=== PATIENT | female | born 1965 | race Caucasian/White ===

== ENCOUNTER → 2019-09-17 | Outpatient (CLI) | payer OTHER | LOC: ULTRA 14:21 | PROVIDERS: ATTEND Obstetrics & Gynecology | DX: R10.2 Pelvic and perineal pain (principal); Z85.43 Personal history of malignant neoplasm of ovary ==

== ENCOUNTER → 2019-09-24 | Outpatient (CLI) | payer OTHER | LOC: LAB 11:43 | PROVIDERS: ATTEND Nurse Practitioner | DX: R05 Cough (principal); R07.89 Other chest pain; Z20.828 Contact with and (suspected) exposure to other viral communicable diseases ==

== ENCOUNTER → 2019-12-27 | Outpatient (CLI) | payer OTHER | LOC: LAB 16:15 | PROVIDERS: ATTEND Hospitalist | DX: Z20.828 Contact with and (suspected) exposure to other viral communicable diseases (principal) ==

== ENCOUNTER → 2019-12-31 | Outpatient (CLI) | payer OTHER ==
[2019-12-31 14:51] LABS: ABSOLUTE NEUTROPHILS 4.8 thou/uL (1.4-8.2); BASOPHILS 0.6 % (0.0-2.0); EOSINOPHILS 2.1 % (0.0-3.0); HEMATOCRIT 41.5 % (37.0-47.0); HEMOGLOBIN 14.1 gm/dL (12.0-15.0); LYMPHOCYTES 27.9 % (24.0-44.0); MCH 30.5 pg (26.0-34.0); MCV 89.6 fL (80.0-100.0); MONOCYTES 5.7 % (1.0-8.0); PLATELET COUNT 274 thou/uL (150-400); POLYS 63.7 % (36.0-66.0); RBC 4.63 mil/uL (4.20-5.00); RDW 12.9 % (10.5-14.5); WBC 7.5 thou/uL (4.0-11.0)
[2019-12-31 15:07] LABS: ALBUMIN 3.7 g/dL (3.4-5.0); CALCIUM 9.1 mg/dL (8.5-10.1); CREATININE 0.7 mg/dL (0.6-1.0); POTASSIUM 3.9 mmol/L (3.5-5.1); TOTAL BILIRUBIN 0.6 mg/dL (0.2-1.0)
== END ==
LOC: LAB 14:16
PROVIDERS: ATTEND Nurse Practitioner Family
DX: M19.031 Primary osteoarthritis, right wrist (principal); M25.731 Osteophyte, right wrist; M25.521 Pain in right elbow; G56.22 Lesion of ulnar nerve, left upper limb; R20.0 Anesthesia of skin; Z68.41 Body mass index [BMI] 40.0-44.9, adult

== ENCOUNTER → 2020-01-02 | Outpatient (CLI) | payer OTHER | LOC: LAB 15:12 | PROVIDERS: ATTEND Family Medicine | DX: Z20.828 Contact with and (suspected) exposure to other viral communicable diseases (principal) ==

== ENCOUNTER → 2020-02-25 | Outpatient (CLI) | payer OTHER | LOC: LAB 10:23 | PROVIDERS: ATTEND Specialist | DX: Z20.828 Contact with and (suspected) exposure to other viral communicable diseases (principal) ==

== ENCOUNTER → 2020-03-11 | Outpatient (CLI) | payer OTHER | LOC: LAB 14:33 | PROVIDERS: ATTEND Specialist | DX: Z20.828 Contact with and (suspected) exposure to other viral communicable diseases (principal) ==

== ENCOUNTER → 2020-03-17 | Outpatient (CLI) | payer OTHER | LOC: LAB 12:50 | PROVIDERS: ATTEND Specialist | DX: Z20.828 Contact with and (suspected) exposure to other viral communicable diseases (principal) ==

== ENCOUNTER → 2020-03-24 | Outpatient (CLI) | payer OTHER | LOC: LAB 14:21 | PROVIDERS: ATTEND Specialist | DX: U07.1 COVID-19 (principal) ==

== ENCOUNTER 2020-03-30 12:30 | Emergency (ER) | payer OTHER ==
[~2020-03-30] VITALS: Ht 157.5 cm; Wt 100.7 kg
[2020-03-30] MEDS ORDERED: IBUPROFEN 800800 M1 PO (13:32)
[2020-03-30] MEDS ORDERED: METFORMIN HCL500 M3 PO (13:32)
[2020-03-30 13:43] LABS: ABSOLUTE NEUTROPHILS 2.7 thou/uL (1.4-8.2); BASOPHILS 0.3 % (0.0-2.0); EOSINOPHILS 0.8 % (0.0-3.0); HEMATOCRIT 41.9 % (37.0-47.0); HEMOGLOBIN 13.8 gm/dL (12.0-15.0); LYMPHOCYTES 34.7 % (24.0-44.0); MCH 29.7 pg (26.0-34.0); MONOCYTES 5.4 % (1.0-8.0); PLATELET COUNT 198 thou/uL (150-400); POLYS 58.8 % (36.0-66.0); RBC 4.66 mil/uL (4.20-5.00); WBC 4.6 thou/uL (4.0-11.0)
[2020-03-30 13:51] LABS: CALCIUM 8.8 mg/dL (8.5-10.1); CREATININE 0.8 mg/dL (0.6-1.0)
[2020-03-30 13:58] LABS: ALBUMIN 3.1 g/dL (3.4-5.0); TOTAL BILIRUBIN 0.4 mg/dL (0.2-1.0); TOTAL PROTEIN 6.7 g/dL (6.4-8.2)
[2020-03-30] MEDS ORDERED: ZPAK PO (14:00)
[2020-03-30] MEDS ORDERED: PREDNISONE 20 M20 M1 PO (14:00)
--- NOTE | 2020-03-30 14:28 | EKG ---
[place] [address] [address] [facility] [place] [address] ELECTROCARDIOGRAM REPORT Name: MAGGI ALVAREZ Room #: REG [facility]#: [id number] Admission: 03/30/20 Attend Phys: Discharge: Date of : 69 Report #: [id number] [facility] ED Test Date: 2020-03-30 Test Time: 13:18:47 Pat Name: MAGGI ALVAREZ Department: Room: Gender: F Budget Officer: irvin : 1965 Requested By: Drake Hood Order Number: [id number] MD: Curtis Pennington Measurements Intervals [place] Rate: 82 P: 44 SC: 126 QRS: 24 QRSD: 69 T: 36 QT: 346 QTc: 404 Interpretive Statements Sinus rhythm Abnormal R-wave progression, early transition No previous ECG available for comparison Electronically Signed On 03-30-2020 14:28:42 [employer] by Curtis Pennington [email or web address] <ELECTRONICALLY SIGNED> By: Curtis Pennington MD, [facility] 03/30/20 1428 1318 1318 Curtis Pennington MD, FACC /EPI
[2020-03-30 14:41] VITALS: BP 140/77
== END 2020-03-30 14:41 | disposition home or self-care (01) ==
LOC: ER 12:30
PROVIDERS: Emergency Medicine
DX: U07.1 COVID-19 (principal); E11.9 Type 2 diabetes mellitus without complications; I10 Essential (primary) hypertension; Z79.899 Other long term (current) drug therapy

== ENCOUNTER → 2020-05-21 | Outpatient (CLI) | payer OTHER ==
[~2020-05-21] MED LIST: IBUPROFEN 800800 M1 PO; METFORMIN HCL500 M3 PO; PREDNISONE 20 M20 M1 PO; ZPAK PO
[2020-05-21 09:03] LABS: ABSOLUTE NEUTROPHILS 4.2 thou/uL (1.4-8.2); BASOPHILS 0.7 % (0.0-2.0); EOSINOPHILS 3.3 % (0.0-3.0); HEMOGLOBIN 13.6 gm/dL (12.0-15.0); LYMPHOCYTES 29.4 % (24.0-44.0); MCHC 33.1 g/dL (28.0-37.0); MCV 90.7 fL (80.0-100.0); MONOCYTES 5.9 % (1.0-8.0); PLATELET COUNT 256 thou/uL (150-400); POLYS 60.7 % (36.0-66.0); RBC 4.52 mil/uL (4.20-5.00); RDW 13.4 % (10.5-14.5); WBC 6.9 thou/uL (4.0-11.0)
[2020-05-21 09:29] LABS: ALBUMIN 3.6 g/dL (3.4-5.0); ANION GAP 6 mmol/L (7-16); BUN 18 mg/dL (7-18); CALCIUM 9.2 mg/dL (8.5-10.1); CHLORIDE 103 mmol/L (98-107); CHOLESTEROL 166 mg/dL (<200); CO2 28 mmol/L (21-32); CREATININE 0.9 mg/dL (0.6-1.0); GLUCOSE 181 mg/dL (74-106); HDL CHOLESTEROL 62 mg/dL (>40); LDL CHOLESTEROL 86 mg/dL (<100); POTASSIUM 4.2 mmol/L (3.5-5.1); SGOT 27 U/L (15-37); SGPT 44 U/L (30-65); SODIUM 137 mmol/L (136-145); TC:HDL 2.7 Ratio (Not establshd); TOTAL BILIRUBIN 0.6 mg/dL (0.2-1.0); TOTAL PROTEIN 7.2 g/dL (6.4-8.2); TRIGLYCERIDE 93 mg/dL (<150); VLDL 19 mg/dL (<40)
[2020-05-23 11:35] LABS: GLYCOHEMOGLOBIN (HGB A1C) 8.1
== END ==
LOC: LAB 08:10
PROVIDERS: ATTEND Family Medicine
DX: E55.9 Vitamin D deficiency, unspecified (principal); E78.5 Hyperlipidemia, unspecified; E08.00 Diabetes mellitus due to underlying condition with hyperosmolarity without nonketotic hyperglycemic-hyperosmolar coma (NKHHC); I10 Essential (primary) hypertension

== ENCOUNTER → 2020-07-01 | Outpatient (CLI) | payer OTHER | LOC: RAD 12:40 | PROVIDERS: ATTEND Family Medicine | DX: R06.00 Dyspnea, unspecified (principal) ==